=== PATIENT | female | born 1960 | race Hispanic/Latino ===

== ENCOUNTER → 2024-04-05 | Outpatient (REF) | payer OTHER ==
[~2024-04-05] MED LIST: ASPIRIN81 MG PO; ATORVASTATIN CA20 MG PO; GABAPENTIN300 MG PO; HYDROXYZINE HCL25 MG PO; IBUPROFEN800 MG PO; IOPAMIDOL 370 MG/ML 100 ML INFUS..BTL INJ ONE; LOSARTAN POTAS100 MG PO; METOPROLOL SUCC50 MG PO; METOPROLOL TARTRATE INJ 1 MG/ML VIAL ONE; NITROGLYCERIN 0.4 MG SUBL ONE; PANTOPRAZOLE SO40 MG PO; SODIUM CHLORIDE 0.9% 100 ML ONE
[2024-04-05 09:42] LABS: CREATININE, SERUM 0.77 mg/dL (0.57-1.11)
== END ==
LOC: CT 08:35
PROVIDERS: ATTEND Internal Medicine Cardiovascular Disease
DX: I20.9 Angina pectoris, unspecified (principal)
CPT/HCPCS: 36415; 75574; 75580; 82565; 84520; J7050; Q9967